=== PATIENT | male | born 1985 | race Caucasian/White ===

== ENCOUNTER 2020-08-28 16:52 | Inpatient (IN) | payer MEDICAID, SELFPAY ==
[~2020-08-28] VITALS: Ht 180.3 cm; Wt 109.7 kg
[2020-08-28] MEDS ORDERED: methylPREDNISolone 125MG 2ML VIAL IV ONE (17:15)
[2020-08-28] MEDS ORDERED: ALEV220T22 PO (17:35)
--- NOTE | 2020-08-28 17:39 | REP ---
INDICATION: Coronavirus workup COMPARISON: None. TECHNIQUE: Portable AP view of the chest FINDINGS: Diffuse bilateral infiltrates consistent with COVID-19 pulmonary disease. No effusion. No pneumothorax. Cardiac silhouette is normal. Skeletal structures intact.. IMPRESSION: Diffuse bilateral infiltrates consistent with COVID-19 pulmonary disease.. <Electronically signed by Chalino Reid > 08/28/20 [id number]
[2020-08-28] MEDS: COMBIVENT RESPIMAT 100-20MCG INHALER 4GM INH SCH ×2 (17:42→17:43)
[2020-08-28] MEDS ORDERED: AZITHROMYCIN INJ 500 MG, VIAL MATE ADAPTER 1 EACH in D5W 250 ML IV ONE (17:45)
[2020-08-28] MEDS ORDERED: cefTRIAXone SOD 1 GM in D5W MINI-BAG PLUS 50 ML IV ONE (17:45)
[2020-08-28 18:41] LABS: BASO % 0.2 % (0.0-1.0); EOS % 0.2 % (0.0-3.0); HEMATOCRIT 43.6 % (42.0-52.0); LYMPH # 0.7 10^3/uL (1.5-5.0); LYMPH % 10.7 % (24.0-44.0); MEAN CORPUSCULAR HEMOGLOBIN 27.8 pg (27.0-33.0); MEAN CORPUSCULAR HGB CONC 32.1 g/dl (32.0-36.5); MEAN CORPUSCULAR VOLUME 86.5 fl (80.0-96.0); MONO # 0.2 10^3/uL (0.0-0.8); MONO % 3.4 % (0.0-5.0); NEUTROPHILS # 5.5 10^3/uL (1.5-8.5); NEUTROPHILS % 84.7 % (36.0-66.0); PLATELET COUNT, AUTOMATED 252 10^3/uL (150-450); RED BLOOD COUNT 5.04 10^6/uL (4.30-6.10); WHITE BLOOD COUNT 6.5 10^3/uL (4.0-10.0)
[2020-08-28 18:58] LABS: INR 1.03; PROTHROMBIN TIME 13.7 SECONDS (12.5-14.3)
[2020-08-28 18:59] LABS: PARTIAL THROMBOPLASTIN TIME 29.8 SECONDS (24.2-38.5)
[2020-08-28 19:01] LABS: D-DIMER QUANT 1608.21 ng/ml (<500)
--- NOTE | 2020-08-28 19:25 | ECGEPIP ---
[facility] - ED Test Date: 2020-08-28 Pat Name: JANAY VAUGHN Department: Room: - Gender: Male Professor Of Communication: russ : 1985 Requested By: Brett Moore Order Number: [id number] Reading MD: Brett Moore Measurements Intervals [place] Rate: 106 P: 26 W[place]: 140 QRS: 6 QRSD: 89 T: 4 QT: 337 QTc: 448 Interpretive Statements SINUS TACHYCARDIA ABNORMAL RHYTHM ECG DELAYED R WAVE PROGRESSION NONSPECIFIC ST T WAVE CHANGES NO PRIOR ECG FOR COMPARISON Electronically Signed on 08-28-2020 19:25:09 EST by Brett Moore
[2020-08-28 19:55] LABS: BLOOD UREA NITROGEN 12 MG/DL (7-18); GLUCOSE, FASTING 97 MG/DL (70-100)
[2020-08-28 19:57] LABS: CALCIUM LEVEL 8.2 MG/DL (8.5-10.1); CARBON DIOXIDE LEVEL 23 mmol/L (20-29); CHLORIDE LEVEL 106 MEQ/L (98-107); CREATININE FOR GFR 1.01 MG/DL (0.70-1.30); GLOMERULAR FILTRATION RATE > 60.0 (>60); POTASSIUM SERUM 3.5 MEQ/L (3.5-5.1); SODIUM LEVEL 139 MEQ/L (136-145)
[2020-08-28 19:58] LABS: ALBUMIN 3.1 GM/DL (3.2-5.2); ALT/SGPT 87 IU/L (0-32); BILIRUBIN,TOTAL 0.9 MG/DL (0.2-1.0); CK-MB VALUE MASS 1.4 NG/ML (<3.6); CPK CREATINE PHOSPHOKINASE 1262 U/L (39-308); LDH LACTATE DEHYDROGENASE 700 U/L (87-241); MAGNESIUM LEVEL 2.2 MG/DL (1.8-2.4); MB/CK RELATIVE INDEX 0.11 (< OR =4); TOTAL PROTEIN 6.4 GM/DL (6.4-8.2)
[2020-08-28 19:59] LABS: FERRITIN 829 NG/ML (26-388); TROPONIN I < 0.02 NG/ML (< 0.10)
--- NOTE | 2020-08-28 20:43 | HPEPDOC ---
[facility] Medical History & Physical Date of Admission Aug 28, 2020 Date of Service: Aug 28, 2020 History and Physical CHIEF COMPLAINT: Shortness of breath and cough HISTORY OF PRESENT ILLNESS: 35-year-old male with a hx of obesity, presented to [facility] with a ten-day history of shortness of breath and productive cough. He reports his father developed symptoms at the same time and tested +2 days ago. Patient had his test, on same date. However, tested negative with a rapid testing technique. Patient is a pulse oximeter home and knows that he was saturating in the high 70%. On arrival to the ED, patient is COVId-19 positive b y PCR. He was hypoxic on room air to 84% on arrival. Is present. Hyponasal cannula up to 15 L, however, continued to desaturate. He was placed on Vapotherm, and is presently saturating 93% on 40 L/m of FiO2 80%. Retinal labs include D dimer 1600. Fibrinogen 628. Ferritin 829. Lactate dehydrogenase 700. CK 1200. CRP 16.7. Procalcitonin pending. Chest x-ray shows diffuse bilateral infiltrates consistent with Covid 19 disease PAST MEDICAL HISTORY: obesity BMI 35.8 PAST SURGICAL HISTORY: no prior surgical hx SOCIAL HISTORY: Patient denies smoking Patient denies etoh use Patient denies illicit drug use ALLERGIES: Please see below. REVIEW OF SYSTEMS: CONSTITUTIONAL: malaise, cough, short of breath, subjective chills HEENT: patient denies blurred vision, loss of vision, headache,. CARDIOVASCULAR: patient denies chest pain, palpitations. RESPIRATORY: reports SOB, cough productive of brown sputum. GASTROINTESTINAL: patient denies abdominal pain, n/v/d, blood in stool. GENITOURINARY: patient denies dysuria, discharge. SKIN: patient denies rashes. MUSCULOSKELETAL: patient denies joint pain, neck pain. NEUROLOGICAL: patient denies focal weakness, numbness, seizures. PSYCHIATRIC: patient denies SI/HI. ENDOCRINE: patient denies polyuria, heat intolerance, cold intolerance. HEMATOLOGIC/LYMPHATIC: patient denies easy bruising. HOME MEDICATIONS: Please see below. PHYSICAL EXAMINATION: VITAL SIGNS: please see below General: NAD, comfortable HEENT: PERRLA, EOMI, sclerae clear Neck: supple, normal ROM, no JVD Respiratory: bilateral crackles at lung bases/rales, educed inspiratory effort CVS: RRR, normal S1, S2, no murmurs Abdo: soft, no masses, no hepatosplenomegaly, BS+, no rebound tenderness Extremities: no edema, pulses 2+ MSK: no joint deformities, normal ROM Neuro: no focal neuro deficits, moving all 4 extremities, CN2-12 intact. Strength 5/5 in all 4 extremities. No nystagmus. Psych: calm, cooperative, AAO x 3 LABORATORY DATA: See below. IMAGING: CXR (08/28/20): IMPRESSION: Diffuse bilateral infiltrates consistent with COVID-19 pulmonary disease MICROBIOLOGY: Please see below. ASSESSMENT: 35 yo healthy M, presented with acute hypoxic respiratory failure secondary to Covid 19 infection. Patient will be admitted to hospitalist service requiring Vapotherm. Will be started on remdesivir, dexamethasone as well as anticoagulation, weight-based. . PLAN: #acute hypoxic respiratory failure / covid-19 infection - chest xray showing findings c/w covid - no fever, no leukocytosis, has proactive cough - procalcitonin pending, will defer antibiotics at this time - trend inflammatory markers daily. - vapotherm, presently 93% on 40 LPM at 80% FiO2 - start remdesivir x 5 days - dexamethasone 6 mg IV daily - combivent - lovenox 0.5 mg/kg q12h - encourage proning - incentive spirometry #Obesity BMI 35.8 - complicating care #DVT ppx: SCDs. TEDs. Lovenox Dispo: admission expected to span > 2 midnights. Vital Signs Vital Signs Date Time Temp Pulse Resp B/P (MAP) Pulse Ox O2 Delivery O2 Flow Rate FiO2 08/28/20 20:25 98 94 08/28/20 20:22 18 08/28/20 20:13 129/79 (96) 08/28/20 19:08 High Flow Cannula 15.0 60 08/28/20 16:52 98.4 Laboratory Data Labs 24H Laboratory Tests 2 08/28/20 17:15: Prothrombin Time 13.7, Prothromb Time International Ratio 1.03, Activated Partial Thromboplast Time 29.8, Fibrinogen 628H, D-Dimer, Quantitative 1608.21H, Anion Gap 10, Glomerular Filtration Rate > 60.0, Calcium Level 8.2L, Magnesium Level 2.2, Ferritin 829H, Total Bilirubin 0.9, Aspartate Amino Transf (AST/SGOT) 102, Alanine Aminotransferase (ALT/SGPT) 87H, Alkaline Phosphatase 52, Lactate Dehydrogenase 700H, Total Creatine Kinase 1262H, Creatine Kinase MB 1.4, Creatine Kinase MB Relative Index 0.11, Troponin I < 0.02, C-Reactive Protein, Quantitative 16.70H, Total Protein 6.4, Albumin 3.1L, Albumin/Globulin Ratio 0.9 08/28/20 17:39: POC pH (Misc Panel) 7.444, POC Base Excess (Misc Panel) -3.0L, POC Saturated Percent O2 (Misc) 92L, POC pO2 (Misc Panel) 60.0L, POC pCO2 (Misc Panel) 30.7L, POC HCO3 (Misc Panel) 21.0L, POC Total CO2 (Misc Panel) 22.0L 08/28/20 18:13: Immature Granulocyte % (Auto) 0.8, Neutrophils (%) (Auto) 84.7H, Lymphocytes (%) (Auto) 10.7L, Monocytes (%) (Auto) 3.4, Eosinophils (%) (Auto) 0.2, Basophils (%) (Auto) 0.2, Neutrophils # (Auto) 5.5, Lymphocytes # (Auto) 0.7L, Monocytes # (Auto) 0.2, Eosinophils # (Auto) 0.0, Basophils # (Auto) 0.0, Nucleated Red Blood Cells % (auto) 0.0 08/28/20 18:14: Coronavirus (COVID-19)(PCR) POSITIVEA CBC/BMP Laboratory Tests 08/28/20 17:15 08/28/20 18:13 Microbiology Microbiology 08/28/20 Blood Culture, Received Pending 08/28/20 Blood Culture, Received Pending Home Medications Scheduled PRN Acetaminophen (Acetaminophen) 325 Mg Tablet, 650 MG PO Q6HP PRN for PAIN / FEVER Allergies Coded Allergies: No Known Allergies (Unverified , 08/28/20) A-FIB/CHADSVASC A-FIB History Current/History of A-Fib/PAF?: No Current PO Anticoag Therapy: No DARRELL MONK MD Aug 28, 2020 20:42
[2020-08-28] MEDS ORDERED: COMBIVENT RESPIMAT 100-20MCG INHALER 4GM INH PRN (21:15)
[2020-08-28] MEDS ORDERED: REMDESIVIR 200 MG in NS 250 ML IV ONE (23:00)
[2020-08-29] VITALS: BP 134/79
[2020-08-29] MEDS ORDERED: SODIUM CHLORIDE 0.9% INJ 10 ML SYR IV ONE (01:00)
[2020-08-29] MEDS: ENOXAPARIN 60MG/0.6ML SYRINGE (J1650 PER 10MG) SC SCH ×3 (01:17→20:06)
[2020-08-29 05:09] VITALS: BP 126/80
[2020-08-29 07:41] VITALS: BP 123/82
[2020-08-29] MEDS: dexameTHASONE 4 MG/ML 1ML VIAL (J1100 PER 1MG) IV SCH (07:43)
[2020-08-29 07:55] LABS: BASO % 0.1 % (0.0-1.0); HEMOGLOBIN 13.5 g/dl (13.5-17.5); LYMPH # 0.6 10^3/uL (1.5-5.0); LYMPH % 8.6 % (24.0-44.0); MEAN CORPUSCULAR HEMOGLOBIN 28.3 pg (27.0-33.0); MEAN CORPUSCULAR HGB CONC 32.9 g/dl (32.0-36.5); MONO # 0.2 10^3/uL (0.0-0.8); MONO % 3.2 % (0.0-5.0); NEUTROPHILS # 6.5 10^3/uL (1.5-8.5); PLATELET COUNT, AUTOMATED 292 10^3/uL (150-450); RED BLOOD COUNT 4.77 10^6/uL (4.30-6.10); WHITE BLOOD COUNT 7.4 10^3/uL (4.0-10.0)
[2020-08-29 08:27] LABS: INR 1.06; PARTIAL THROMBOPLASTIN TIME 37.4 SECONDS (24.2-38.5)
[2020-08-29 09:25] LABS: ALBUMIN 2.7 GM/DL (3.2-5.2); ALT/SGPT 81 U/L (12-78); BILIRUBIN,DIRECT 0.3 MG/DL (0.0-0.2); BILIRUBIN,TOTAL 0.5 MG/DL (0.2-1.0); BLOOD UREA NITROGEN 12 MG/DL (7-18); CALCIUM LEVEL 8.1 MG/DL (8.5-10.1); CARBON DIOXIDE LEVEL 25 MEQ/L (21-32); CHLORIDE LEVEL 106 MEQ/L (98-107); CREATININE FOR GFR 0.82 MG/DL (0.70-1.30); FERRITIN 896 NG/ML (26-388); GLOMERULAR FILTRATION RATE > 60.0 (>60); GLUCOSE, FASTING 126 MG/DL (70-100); MAGNESIUM LEVEL 2.6 MG/DL (1.8-2.4); NT-PRO BNP 78 PG/ML (<125); POTASSIUM SERUM 4.2 MEQ/L (3.5-5.1); SODIUM LEVEL 140 MEQ/L (136-145); TROPONIN I < 0.02 NG/ML (< 0.10)
[2020-08-29 12:00] VITALS: BP 137/85
--- NOTE | 2020-08-29 14:41 | IPNPDOC ---
Text Note Date of Service The patient was seen on 08/29/20. NOTE Subjective: Patient seen and examined at bedside. No acute overnight events reported. No new medical complaints. Slowly feeling better. Objective: General: NAD, lying comfortably in bed HEENT: NC/AT A/P: 35 yo healthy M, presented with acute hypoxic respiratory failure secondary to Covid 19 infection. Patient will be admitted to hospitalist service requiring Vapotherm. Will be started on remdesivir, dexamethasone as well as anticoagulation, weight-based. #acute hypoxic respiratory failure 2/2 covid-19 infection - chest xray showing findings c/w covid - no fever, no leukocytosis, has proactive cough - procalcitonin pending, will defer antibiotics at this time - trend inflammatory markers daily. - vapotherm, presently 93% on 40 LPM at 80% FiO2 - start remdesivir x 5 days day #1 - dexamethasone 6 mg IV daily day #1 - combivent - lovenox 0.5 mg/kg q12h - encourage proning - incentive spirometry #Obesity BMI 35.8 - complicating care #DVT ppx: SCDs. TEDs. Lovenox VS,Fishbone, I+O VS, Fishbone, I+O Laboratory Tests 08/28/20 17:15 08/28/20 18:13 08/29/20 07:29 Vital Signs Date Time Temp Pulse Resp B/P (MAP) Pulse Ox O2 Delivery O2 Flow Rate FiO2 08/29/20 13:03 99.4 08/29/20 12:00 30.0 90 08/29/20 12:00 99 19 137/85 (102) 92 HVNI-Vapotherm I&O- Last 24 Hours up to 6 AM 08/29/20 06:00 Intake Total 425 ml Balance 425 ml JAMES ARVIZU MD Aug 29, 2020 14:41
[2020-08-29 15:54] VITALS: BP 141/98
[2020-08-29 20:00] VITALS: BP 151/91
[2020-08-29] MEDS: ACETAMINOPHEN TAB 650MG DOSE (2X325MG) PO PRN (20:06)
[2020-08-29] MEDS: REMDESIVIR 100 MG in NS 250 ML IV SCH (22:19)
[2020-08-30] VITALS (10 sets, daily range): BP systolic 131–144; BP diastolic 78–97; O2SAT 92–96
[2020-08-30] MEDS: SODIUM CHLORIDE 0.9% INJ 10 ML SYR IV SCH ×2 (00:04→23:57)
[2020-08-30] MEDS: ENOXAPARIN 60MG/0.6ML SYRINGE (J1650 PER 10MG) SC SCH ×2 (09:26→22:00)
[2020-08-30] MEDS: dexameTHASONE 4 MG/ML 1ML VIAL (J1100 PER 1MG) IV SCH (09:27)
[2020-08-30] MEDS ORDERED: FUROSEMIDE 20MG/2ML VIAL (J1940) IV ONE (09:45)
[2020-08-30 10:48] LABS: BASO % 0.1 % (0.0-1.0); HEMOGLOBIN 13.4 g/dl (13.5-17.5); LYMPH # 0.9 10^3/uL (1.5-5.0); MEAN CORPUSCULAR HEMOGLOBIN 27.9 pg (27.0-33.0); MEAN CORPUSCULAR HGB CONC 31.9 g/dl (32.0-36.5); MEAN CORPUSCULAR VOLUME 87.3 fl (80.0-96.0); MONO # 0.4 10^3/uL (0.0-0.8); MONO % 3.9 % (0.0-5.0); NEUTROPHILS # 9.6 10^3/uL (1.5-8.5); NEUTROPHILS % 86.5 % (36.0-66.0); PLATELET COUNT, AUTOMATED 382 10^3/uL (150-450); RED BLOOD COUNT 4.81 10^6/uL (4.30-6.10)
[2020-08-30 11:13] LABS: INR 1.01; PROTHROMBIN TIME 13.5 SECONDS (12.5-14.3)
[2020-08-30 11:14] LABS: PARTIAL THROMBOPLASTIN TIME 29.7 SECONDS (24.2-38.5)
[2020-08-30 11:39] LABS: ALBUMIN 2.6 GM/DL (3.2-5.2); ALT/SGPT 72 U/L (12-78); BILIRUBIN,DIRECT 0.2 MG/DL (0.0-0.2); BILIRUBIN,TOTAL 0.6 MG/DL (0.2-1.0); BLOOD UREA NITROGEN 19 MG/DL (7-18); CALCIUM LEVEL 8.2 MG/DL (8.5-10.1); CARBON DIOXIDE LEVEL 25 MEQ/L (21-32); CHLORIDE LEVEL 105 MEQ/L (98-107); CREATININE FOR GFR 0.78 MG/DL (0.70-1.30); FERRITIN 975 NG/ML (26-388); GLOMERULAR FILTRATION RATE > 60.0 (>60); GLUCOSE, FASTING 121 MG/DL (70-100); MAGNESIUM LEVEL 2.5 MG/DL (1.8-2.4); NT-PRO BNP 113 PG/ML (<125); POTASSIUM SERUM 4.2 MEQ/L (3.5-5.1); SODIUM LEVEL 140 MEQ/L (136-145); TOTAL PROTEIN 5.8 GM/DL (6.4-8.2)
[2020-08-30 12:06] LABS: INFLUENZA A AMPLIFICATION NEGATIVE (NEGATIVE); INFLUENZA B AMPLIFICATION NEGATIVE (NEGATIVE)
[2020-08-30] MEDS: IBUPROFEN 200MG TAB PO PRN (12:28)
--- NOTE | 2020-08-30 13:39 | IPNPDOC ---
Text Note Date of Service The patient was seen on 08/30/20. NOTE Patient seen and examined at bedside. No acute overnight events reported. No new medical complaints. Requiring 100% FiO2 on 40 L, but feeling better PHYSICAL EXAMINATION: General: The patient is awake, alert, oriented x3, sitting up in the bed in no apparent distress. In prone position Head and Neck Exam: Extraocular muscles intact. Pupils equally round and reactive to light. Mucous membranes are moist. Neck is supple. There is no jugular venous distention (JVD). Cardiovascular: S1 and S2, regular rate. Trace edema of the bilateral lower extremities. Respiratory: Distant breath sounds but no rhonchi, no rales appreciated Abdomen: Soft. Positive bowel sounds. Nontender. No organomegaly. Genitourinary: Deferred Musculoskeletal: Clubbing of the fingernails, no cyanosis was noted. Central Nervous System (HOUSEKEEPING ASSOCIATE): No focal deficit. Power is 5/5 in all extremities. Labs reviewed Radiology reviewed Assessment and plan 35 yo healthy M, presented with acute hypoxic respiratory failure secondary to Covid 19 infection. Patient will be admitted to hospitalist service requiring Vapotherm. Will be started on remdesivir, dexamethasone as well as anticoagulation, weight-based. 1. acute hypoxic respiratory failure 2/2 covid-19 infection - chest xray showing findings c/w covid - no fever, no leukocytosis, has proactive cough - procalcitonin negative, will defer antibiotics at this time - trend inflammatory markers daily. - vapotherm, presently 100% on 40 LPM - start remdesivir x 5 days day #2 - dexamethasone 6 mg IV daily day #2 - combivent - lovenox 0.5 mg/kg q12h - encourage proning - incentive spirometry 2. Obesity BMI 35.8 - complicating care Advised prouning, half an hour. For every 2 hours. Incentive spirometry and out of bed to chair. Disposition unknown at this time VS,Freemane, I+O VS, Sachinbone, I+O Laboratory Tests 08/30/20 09:24 Vital Signs Date Time Temp Pulse Resp B/P (MAP) Pulse Ox O2 Delivery O2 Flow Rate FiO2 08/30/20 12:00 100.0 82 21 136/90 (105) 92 HVNI-Vapotherm 40.0 100 I&O- Last 24 Hours up to 6 AM 08/30/20 05:59 Intake Total 2280 ml Output Total 1500 ml Balance 780 ml DARWIN LIRIANO MD Aug 30, 2020 13:39
[2020-08-30] MEDS: REMDESIVIR 100 MG in NS 250 ML IV SCH (23:56)
[2020-08-30] MEDS: ACETAMINOPHEN TAB 650MG DOSE (2X325MG) PO PRN (23:56)
[2020-08-31] VITALS (24 sets, daily range): BP systolic 130–142; BP diastolic 82–96; O2SAT 88–98
[2020-08-31 07:40] LABS: HEMATOCRIT 42.2 % (42.0-52.0); HEMOGLOBIN 13.5 g/dl (13.5-17.5); MEAN CORPUSCULAR HEMOGLOBIN 28.1 pg (27.0-33.0); MEAN CORPUSCULAR VOLUME 87.7 fl (80.0-96.0); PLATELET COUNT, AUTOMATED 397 10^3/uL (150-450); RED BLOOD COUNT 4.81 10^6/uL (4.30-6.10); WHITE BLOOD COUNT 9.4 10^3/uL (4.0-10.0)
[2020-08-31 08:13] LABS: INR 1.08; PARTIAL THROMBOPLASTIN TIME 29.3 SECONDS (24.2-38.5); PROTHROMBIN TIME 14.3 SECONDS (12.5-14.3)
[2020-08-31 08:27] LABS: ATYPICAL LYMPH 4 % (0-5); LYMPHOCYTES 11 % (16-44); MONOCYTES 4 % (0-5); NEUTROPHILS 78 % (28-66); PLATELET ESTIMATE NORMAL (NORMAL)
[2020-08-31 08:37] LABS: ALBUMIN 2.5 GM/DL (3.2-5.2); ALT/SGPT 66 U/L (12-78); BILIRUBIN,DIRECT 0.3 MG/DL (0.0-0.2); BILIRUBIN,TOTAL 0.6 MG/DL (0.2-1.0); BLOOD UREA NITROGEN 21 MG/DL (7-18); CALCIUM LEVEL 8.2 MG/DL (8.5-10.1); CARBON DIOXIDE LEVEL 26 MEQ/L (21-32); CHLORIDE LEVEL 108 MEQ/L (98-107); CREATININE FOR GFR 0.85 MG/DL (0.70-1.30); FERRITIN 647 NG/ML (26-388); GLOMERULAR FILTRATION RATE > 60.0 (>60); GLUCOSE, FASTING 105 MG/DL (70-100); MAGNESIUM LEVEL 2.6 MG/DL (1.8-2.4); NT-PRO BNP 57 PG/ML (<125); POTASSIUM SERUM 4.3 MEQ/L (3.5-5.1); SODIUM LEVEL 143 MEQ/L (136-145); TOTAL PROTEIN 5.6 GM/DL (6.4-8.2)
[2020-08-31] MEDS: dexameTHASONE 4 MG/ML 1ML VIAL (J1100 PER 1MG) IV SCH (08:39)
[2020-08-31] MEDS: ENOXAPARIN 60MG/0.6ML SYRINGE (J1650 PER 10MG) SC SCH ×2 (08:39→21:58)
--- NOTE | 2020-08-31 12:08 | IPNPDOC ---
Text Note Date of Service The patient was seen on 08/31/20. NOTE Patient seen and examined at bedside. No acute overnight events reported. No new medical complaints. Requiring 100% FiO2 on 40 L, but feeling better Physical exam General: The patient is awake, alert, oriented x3, in the bed in no apparent distress. In prone position Head and Neck Exam: Extraocular muscles intact. Pupils equally round and re active to light. Mucous membranes are moist. Neck is supple. There is no jugular venous distention (JVD). Cardiovascular: S1 and S2, regular rate. Trace edema of the bilateral lower extremities. Respiratory: Distant breath sounds but no rhonchi, no rales appreciated Abdomen: Soft. Positive bowel sounds. Nontender. No organomegaly. Genitourinary: Deferred Musculoskeletal: Clubbing of the fingernails, no cyanosis was noted. Central Nervous System (PATIENT OMBUDSPERSON): No focal deficit. Power is 5/5 in all extremities. Labs reviewed Radiology reviewed Assessment and plan 35 yo healthy M, presented with acute hypoxic respiratory failure secondary to Covid 19 infection. Patient will be admitted to hospitalist service requiring Vapotherm. Will be started on remdesivir, dexamethasone as well as anticoagulation, weight-based. 1. acute hypoxic respiratory failure 2/2 covid-19 infection: Stable and slightly improved - chest xray showing findings c/w covid - no fever, no leukocytosis, has proactive cough - procalcitonin negative, will defer antibiotics at this time - trend inflammatory markers daily. - vapotherm, presently 100% on 40 LPM - start remdesivir x 5 days day #3 - dexamethasone 6 mg IV daily day #3 - combivent - lovenox 0.5 mg/kg q12h - encourage proning - incentive spirometry 2. Obesity BMI 35.8 - complicating care Advised prouning, half an hour. For every 2 hours. Incentive spirometry and out of bed to chair. Disposition unknown at this time VS,Fishbone, I+O VS, Fishbone, I+O Laboratory Tests 08/31/20 07:29 Vital Signs Date Time Temp Pulse Resp B/P (MAP) Pulse Ox O2 Delivery O2 Flow Rate FiO2 08/31/20 08:43 99.1 78 20 131/85 (100) 93 HVNI-Vapotherm 40.0 100 I&O- Last 24 Hours up to 6 AM 08/31/20 06:00 Intake Total 2140 ml Output Total 1400 ml Balance 740 ml DARWIN LIRIANO MD Aug 31, 2020 12:08
[2020-08-31] MEDS: REMDESIVIR 100 MG in NS 250 ML IV SCH (23:50)
[2020-09-01] VITALS (9 sets, daily range): BP systolic 102–134; BP diastolic 59–87; O2SAT 91–96
[2020-09-01] MEDS: SODIUM CHLORIDE 0.9% INJ 10 ML SYR IV SCH (01:32)
[2020-09-01 07:59] LABS: BASO % 0.3 % (0.0-1.0); EOS % 0.1 % (0.0-3.0); HEMATOCRIT 42.1 % (42.0-52.0); HEMOGLOBIN 13.2 g/dl (13.5-17.5); LYMPH # 1.5 10^3/uL (1.5-5.0); LYMPH % 13.8 % (24.0-44.0); MEAN CORPUSCULAR HEMOGLOBIN 27.6 pg (27.0-33.0); MEAN CORPUSCULAR HGB CONC 31.4 g/dl (32.0-36.5); MEAN CORPUSCULAR VOLUME 88.1 fl (80.0-96.0); MONO # 0.6 10^3/uL (0.0-0.8); MONO % 5.7 % (0.0-5.0); NEUTROPHILS # 8.3 10^3/uL (1.5-8.5); NEUTROPHILS % 77.6 % (36.0-66.0); PLATELET COUNT, AUTOMATED 437 10^3/uL (150-450); RED BLOOD COUNT 4.78 10^6/uL (4.30-6.10); WHITE BLOOD COUNT 10.7 10^3/uL (4.0-10.0)
[2020-09-01 08:18] LABS: INR 1.06
[2020-09-01 08:20] LABS: PARTIAL THROMBOPLASTIN TIME 28.6 SECONDS (24.2-38.5)
[2020-09-01 08:24] LABS: D-DIMER QUANT 1040.51 ng/ml (<500)
[2020-09-01 08:48] LABS: BLOOD UREA NITROGEN 20 MG/DL (7-18); GLOMERULAR FILTRATION RATE > 60.0 (>60); GLUCOSE, FASTING 87 MG/DL (70-100); SODIUM LEVEL 141 MEQ/L (136-145)
[2020-09-01 08:49] LABS: ALBUMIN 2.5 GM/DL (3.2-5.2); ALT/SGPT 76 U/L (12-78); BILIRUBIN,DIRECT 0.2 MG/DL (0.0-0.2); BILIRUBIN,TOTAL 0.6 MG/DL (0.2-1.0); CALCIUM LEVEL 8.2 MG/DL (8.5-10.1); CARBON DIOXIDE LEVEL 26 MEQ/L (21-32); CHLORIDE LEVEL 108 MEQ/L (98-107); FERRITIN 529 NG/ML (26-388); MAGNESIUM LEVEL 2.4 MG/DL (1.8-2.4); NT-PRO BNP 60 PG/ML (<125); POTASSIUM SERUM 4.5 MEQ/L (3.5-5.1); TOTAL PROTEIN 5.7 GM/DL (6.4-8.2)
[2020-09-01] MEDS: ENOXAPARIN 60MG/0.6ML SYRINGE (J1650 PER 10MG) SC SCH ×2 (09:14→20:48)
[2020-09-01] MEDS: dexameTHASONE 20MG/5ML VIAL (J1100 PER 1MG) IV SCH (13:24)
[2020-09-01] MEDS: IBUPROFEN 200MG TAB PO PRN ×2 (13:24→20:48)
--- NOTE | 2020-09-01 15:14 | IPNPDOC ---
Text Note Date of Service The patient was seen on 09/01/20. NOTE Patient seen and examined at bedside. No acute overnight events reported. No new medical complaints except for not sleeping well last night. Still Requiring 100% FiO2 on 40 L, but feeling better Physical exam General: The patient is awake, alert, oriented x3, in the bed in no apparent distress. In prone position Head and Neck Exam: Extraocular muscles intact. Pupils equally round and reactive to light. Mucous membranes are moist. Neck is supple. There is no jugular venous distention (JVD). Cardiovascular: S1 and S2, regular rate. Trace edema of the bilateral lower extremities. Respiratory: Distant breath sounds but no rhonchi, no rales appreciated Abdomen: Soft. Positive bowel sounds. Nontender. No organomegaly. Genitourinary: Deferred Musculoskeletal: Clubbing of the fingernails, no cyanosis was noted. Central Nervous System (RUBBER PRESS TENDER): No focal deficit. Power is 5/5 in all extremities. Labs reviewed Radiology reviewed Assessment and plan 35 yo healthy M, presented with acute hypoxic respiratory failure secondary to Covid 19 infection. Patient will be admitted to hospitalist service requiring Vapotherm. Will be started on remdesivir, dexamethasone as well as anticoagulation, weight-based. 1. acute hypoxic respiratory failure 2/2 covid-19 infection: Stable and slightly improved - chest xray showing findings c/w covid - no fever, no leukocytosis, has proactive cough - procalcitonin negative, will defer antibiotics at this time - trend inflammatory markers daily. - vapotherm, presently 100% on 40 LPM - remdesivir x 5 days day #4 - dexamethasone 6 mg IV daily day #4 - combivent - lovenox 0.5 mg/kg q12h - encourage proning - incentive spirometry 2. Obesity BMI 35.8 - complicating care Advised prouning, half an hour. For every 2 hours. Incentive spirometry and out of bed to chair. Disposition unknown at this time VSBrendon, I+O VSBrendon, I+O Laboratory Tests 09/01/20 07:17 Vital Signs Date Time Temp Pulse Resp B/P (MAP) Pulse Ox O2 Delivery O2 Flow Rate FiO2 09/01/20 12:00 100.0 70 19 132/63 (86) 93 HVNI-Vapotherm 40.0 100 I&O- Last 24 Hours up to 6 AM 09/01/20 06:00 Intake Total 900 ml Output Total 600 ml Balance 300 ml DARWIN LIRIANO MD Sep 01, 2020 15:14
[2020-09-01] MEDS: REMDESIVIR 100 MG in NS 250 ML IV SCH (21:30)
[2020-09-02] VITALS (7 sets, daily range): BP systolic 107–148; BP diastolic 57–84; O2SAT 95
[2020-09-02] MEDS: SODIUM CHLORIDE 0.9% INJ 10 ML SYR IV SCH (00:02)
[2020-09-02 07:52] LABS: BASO % 0.3 % (0.0-1.0); EOS % 0.3 % (0.0-3.0); HEMATOCRIT 42.6 % (42.0-52.0); HEMOGLOBIN 13.5 g/dl (13.5-17.5); LYMPH # 1.2 10^3/uL (1.5-5.0); LYMPH % 11.6 % (24.0-44.0); MEAN CORPUSCULAR HEMOGLOBIN 27.5 pg (27.0-33.0); MEAN CORPUSCULAR HGB CONC 31.7 g/dl (32.0-36.5); MEAN CORPUSCULAR VOLUME 86.8 fl (80.0-96.0); MONO # 0.4 10^3/uL (0.0-0.8); MONO % 3.9 % (0.0-5.0); NEUTROPHILS # 8.3 10^3/uL (1.5-8.5); NEUTROPHILS % 81.5 % (36.0-66.0); PLATELET COUNT, AUTOMATED 426 10^3/uL (150-450); RED BLOOD COUNT 4.91 10^6/uL (4.30-6.10); WHITE BLOOD COUNT 10.1 10^3/uL (4.0-10.0)
[2020-09-02 08:11] LABS: INR 1.07; PROTHROMBIN TIME 14.1 SECONDS (12.5-14.3)
[2020-09-02 08:20] LABS: ALBUMIN 2.3 GM/DL (3.2-5.2); ALT/SGPT 73 U/L (12-78); BILIRUBIN,DIRECT 0.2 MG/DL (0.0-0.2); BILIRUBIN,TOTAL 0.7 MG/DL (0.2-1.0); BLOOD UREA NITROGEN 16 MG/DL (7-18); CARBON DIOXIDE LEVEL 24 MEQ/L (21-32); CHLORIDE LEVEL 109 MEQ/L (98-107); CREATININE FOR GFR 0.73 MG/DL (0.70-1.30); FERRITIN 479 NG/ML (26-388); GLOMERULAR FILTRATION RATE > 60.0 (>60); GLUCOSE, FASTING 78 MG/DL (70-100); MAGNESIUM LEVEL 2.2 MG/DL (1.8-2.4); NT-PRO BNP 71 PG/ML (<125); POTASSIUM SERUM 4.2 MEQ/L (3.5-5.1); SODIUM LEVEL 140 MEQ/L (136-145); TOTAL PROTEIN 5.9 GM/DL (6.4-8.2)
[2020-09-02] MEDS: dexameTHASONE 20MG/5ML VIAL (J1100 PER 1MG) IV SCH (08:54)
[2020-09-02] MEDS: ENOXAPARIN 60MG/0.6ML SYRINGE (J1650 PER 10MG) SC SCH ×2 (08:55→19:59)
[2020-09-02] MEDS: IBUPROFEN 200MG TAB PO PRN (08:58)
[2020-09-02] MEDS ORDERED: FUROSEMIDE 20MG/2ML VIAL (J1940) IV ONE (11:00)
--- NOTE | 2020-09-02 13:05 | IPNPDOC ---
Text Note Date of Service The patient was seen on 09/02/20. NOTE Patient seen and examined at bedside. No acute overnight events reported. No new medical complaints except for not sleeping well last night.. Finally, he is down to 90% FiO2 and still requiring 40 L Physical exam General: The patient is awake, alert, oriented x3, in the bed in no apparent distress. In prone position Head and Neck Exam: Extraocular muscles intact. Pupils equally round and reactive to light. Mucous membranes are moist. Neck is supple. There is no jugular venous distention (JVD). Cardiovascular: S1 and S2, regular rate. Trace edema of the bilateral lower extremities. Respiratory: Distant breath sounds but no rhonchi, no rales appreciated Abdomen: Soft. Positive bowel sounds. Nontender. No organomegaly. Genitourinary: Deferred Musculoskeletal: Clubbing of the fingernails, no cyanosis was noted. Central Nervous System (FAMILY MEDICINE RESIDENT): No focal deficit. Power is 5/5 in all extremities. Labs reviewed Radiology reviewed Assessment and plan 35 yo healthy M, presented with acute hypoxic respiratory failure secondary to Covid 19 infection. Patient will be admitted to hospitalist service requiring Vapotherm.. He is on remdesivir, dexamethasone as well as prophylactic anticoagulation. 1. acute hypoxic respiratory failure 2/2 covid-19 infection: Stable and slightly improved: Chest x-ray reviewed. He has not been febrile or having any cough or having any leukocytosis. Pro-Jovi is normal, so antibiotics were not started. He continues to be on Vapotherm at 90% FiO2 and 40 L. Dexamethasone is continued tenderness of a discontinued both are day 5 today. He is on Combivent inhaler an d we are encouraging pronating and incentive spirometry. Continue prophylactic dose Lovenox 2. Obesity BMI 35.8: complicating care unit. Counseled in detail Advised prouning, half an hour. For every 2 hours. Incentive spirometry and out of bed to chair. Disposition unknown at this time VS,Brendon, I+O VSBrendon, I+O Laboratory Tests 09/02/20 06:55 Vital Signs Date Time Temp Pulse Resp B/P (MAP) Pulse Ox O2 Delivery O2 Flow Rate FiO2 09/02/20 12:00 99.1 85 18 135/84 (101) 93 HVNI-Vapotherm 40.0 90 I&O- Last 24 Hours up to 6 AM 1/14/21 06:00 Intake Total 1620 ml Output Total 800 ml Balance 820 ml DARWIN LIRIANO MD Sep 02, 2020 13:05
[2020-09-02] MEDS: ACETAMINOPHEN TAB 650MG DOSE (2X325MG) PO PRN (21:39)
[2020-09-03] VITALS (20 sets, daily range): BP systolic 117–155; BP diastolic 63–93; O2SAT 88–93
[2020-09-03] MEDS: ACETAMINOPHEN TAB 650MG DOSE (2X325MG) PO PRN (05:23)
[2020-09-03] MEDS: ENOXAPARIN 60MG/0.6ML SYRINGE (J1650 PER 10MG) SC SCH ×2 (08:23→22:00)
[2020-09-03] MEDS: dexameTHASONE 20MG/5ML VIAL (J1100 PER 1MG) IV SCH (08:23)
[2020-09-03] MEDS: IBUPROFEN 200MG TAB PO PRN (08:39)
--- NOTE | 2020-09-03 12:33 | IPNPDOC ---
Text Note Date of Service The patient was seen on 09/03/20. NOTE Patient seen and examined at bedside. No acute overnight events reported.. He has been pronating very well and feeling a lot better today Physical exam General: The patient is awake, alert, oriented x3, in the bed in no apparent distress. In prone position Head and Neck Exam: Extraocular muscles intact. Pupils equally round and reactive to light. Mucous membranes are moist. Neck is supple. There is no jugular venous distention (JVD). Cardiovascular: S1 and S2, regular rate. Trace edema of the bilateral lower extremities. Respiratory: Distant breath sounds but no rhonchi, no rales appreciated Abdomen: Soft. Positive bowel sounds. Nontender. No organomegaly. Genitourinary: Deferred Musculoskeletal: Clubbing of the fingernails, no cyanosis was noted. Central Nervous System (BUFFING MACHINE TENDER): No focal deficit. Power is 5/5 in all extremities. Labs reviewed Radiology reviewed Assessment and plan 35 yo healthy M, presented with acute hypoxic respiratory failure secondary to Covid 19 infection. Patient will be admitted to hospitalist service requiring Vapotherm initially maximum at 40 L an 100% FiO2 and it is currently down to 75% FiO2 and 35 L. He is on remdesivir and will require a total of 10 days, dexa methasone as well as prophylactic anticoagulation 0.5 mg per KG body weight. 1. Acute hypoxic respiratory failure 2/2 covid-19 infection: Stable and slightly improved: Chest x-ray reviewedPro-Jovi is normal, so antibiotics were not started. He continues to be on Vapotherm, but it has gone down to 75 FiO2 and 35 L. Dexamethasone and remdesivir continued. He is on Combivent inhaler and we are encouraging pronating and incentive spirometry. Continue prophylactic dose Lovenox at 0.5 mg per KG body weight 2. Obesity BMI 35.8: complicating care unit. Counseled in detail Advised prouning, half an hour. For every 2 hours. Incentive spirometry and out of bed to chair. Disposition unknown at this time VS,Fishbone, I+O VS, Fishbone, I+O Vital Signs Date Time Temp Pulse Resp B/P (MAP) Pulse Ox O2 Delivery O2 Flow Rate FiO2 09/03/20 12:00 100.0 86 20 131/81 (98) 93 HVNI-Vapotherm 36.0 75 I&O- Last 24 Hours up to 6 AM 09/03/20 06:00 Intake Total 1670 ml Output Total 2075 ml Balance -405 ml DARWIN LIRIANO MD Sep 03, 2020 12:33
[2020-09-04] VITALS (7 sets, daily range): BP systolic 109–148; BP diastolic 69–91; O2SAT 92–94
[2020-09-04 09:06] LABS: HEMATOCRIT 44.2 % (42.0-52.0); HEMOGLOBIN 14.6 g/dl (13.5-17.5); MEAN CORPUSCULAR HEMOGLOBIN 28.2 pg (27.0-33.0); MEAN CORPUSCULAR VOLUME 85.3 fl (80.0-96.0); PLATELET COUNT, AUTOMATED 466 10^3/uL (150-450); RED BLOOD COUNT 5.18 10^6/uL (4.30-6.10); WHITE BLOOD COUNT 11.5 10^3/uL (4.0-10.0)
[2020-09-04] MEDS: dexameTHASONE 20MG/5ML VIAL (J1100 PER 1MG) IV SCH (09:11)
[2020-09-04] MEDS: ENOXAPARIN 60MG/0.6ML SYRINGE (J1650 PER 10MG) SC SCH ×3 (09:11→21:37)
[2020-09-04] MEDS: ACETAMINOPHEN TAB 650MG DOSE (2X325MG) PO PRN (09:12)
[2020-09-04 09:22] LABS: ALBUMIN 2.4 GM/DL (3.2-5.2); ALT/SGPT 56 U/L (12-78); BILIRUBIN,TOTAL 0.8 MG/DL (0.2-1.0); BLOOD UREA NITROGEN 14 MG/DL (7-18); CARBON DIOXIDE LEVEL 24 MEQ/L (21-32); CHLORIDE LEVEL 104 MEQ/L (98-107); CREATININE FOR GFR 0.82 MG/DL (0.70-1.30); GLOMERULAR FILTRATION RATE > 60.0 (>60); GLUCOSE, FASTING 72 MG/DL (70-100); POTASSIUM SERUM 4.6 MEQ/L (3.5-5.1); SODIUM LEVEL 138 MEQ/L (136-145); TOTAL PROTEIN 5.8 GM/DL (6.4-8.2)
[2020-09-04 09:23] LABS: ALBUMIN 2.4 GM/DL (3.2-5.2); BILIRUBIN,DIRECT 0.3 MG/DL (0.0-0.2); BILIRUBIN,TOTAL 0.8 MG/DL (0.2-1.0); TOTAL PROTEIN 5.9 GM/DL (6.4-8.2)
[2020-09-04] MEDS: REMDESIVIR 100 MG in NS 250 ML IV SCH (12:47)
--- NOTE | 2020-09-04 15:03 | IPNPDOC ---
Text Note Date of Service The patient was seen on 09/04/20. NOTE Subjective: No any acute events overnight Objective: GENERAL APPEARANCE: NAD HEENT: no scleral icterus, no JVD, EOMI CARDIOVASCULAR: S1S2 LUNGS: Diminished lung sounds bilaterally ABDOMEN: soft & not tender w palpitation MUSCULOSKELETAL: no cyanosis, no swelling INTEGUMENT: no generalized palor NEUROLOGICAL: cranial nerve function from 2-12 intact intact, follows commands, speech not dysarthric Assessment and plan 35 yo healthy M, presented with acute hypoxic respiratory failure secondary to Covid 19 infection. Patient is treatment with steroids, Remdesevir and Vapotherm 1. Acute hypoxic respiratory failure 2/2 covid-19 infection: Continue current treatment with steroids, Remdesevir and Vapotherm procalcitonin was negative, no indications for antibiotics for now Covid 19 PNA Chest x-ray showed Diffuse bilateral infiltrates consistent with COVID-19 pulmonary disease.. Continue incentive spirometry Obesity BMI 35.8: complicating care unit. VS,Fishbone, I+O VS, Fishbone, I+O Laboratory Tests 09/04/20 08:00 Vital Signs Date Time Temp Pulse Resp B/P (MAP) Pulse Ox O2 Delivery O2 Flow Rate FiO2 09/04/20 08:00 87 HVNI-Vapotherm 40.0 100 09/04/20 08:00 101.4 111 20 127/75 (92) I&O- Last 24 Hours up to 6 AM 09/04/20 06:00 Intake Total 660 ml Output Total 1400 ml Balance -740 ml REYNALDO DOCKERY DO Sep 04, 2020 15:03
[2020-09-05] VITALS: BP 143/92; O2SAT 94
[2020-09-05 06:00] VITALS: BP 138/85; O2SAT 94
[2020-09-05 06:17] LABS: HEMATOCRIT 44.1 % (42.0-52.0); HEMOGLOBIN 14.5 g/dl (13.5-17.5); MEAN CORPUSCULAR HEMOGLOBIN 27.9 pg (27.0-33.0); MEAN CORPUSCULAR HGB CONC 32.9 g/dl (32.0-36.5); MEAN CORPUSCULAR VOLUME 84.8 fl (80.0-96.0); PLATELET COUNT, AUTOMATED 437 10^3/uL (150-450); WHITE BLOOD COUNT 9.2 10^3/uL (4.0-10.0)
[2020-09-05 07:00] LABS: ALBUMIN 2.3 GM/DL (3.2-5.2); ALT/SGPT 50 U/L (12-78); BILIRUBIN,TOTAL 0.8 MG/DL (0.2-1.0); BLOOD UREA NITROGEN 13 MG/DL (7-18); CALCIUM LEVEL 8.4 MG/DL (8.5-10.1); CARBON DIOXIDE LEVEL 27 MEQ/L (21-32); CHLORIDE LEVEL 104 MEQ/L (98-107); CREATININE FOR GFR 0.84 MG/DL (0.70-1.30); GLOMERULAR FILTRATION RATE > 60.0 (>60); GLUCOSE, FASTING 76 MG/DL (70-100); POTASSIUM SERUM 4.4 MEQ/L (3.5-5.1); SODIUM LEVEL 137 MEQ/L (136-145); TOTAL PROTEIN 5.8 GM/DL (6.4-8.2)
[2020-09-05 08:00] VITALS: BP 137/80
[2020-09-05] MEDS: ENOXAPARIN 60MG/0.6ML SYRINGE (J1650 PER 10MG) SC SCH (09:25)
[2020-09-05] MEDS: dexameTHASONE 20MG/5ML VIAL (J1100 PER 1MG) IV SCH (09:25)
[2020-09-05] MEDS: ACETAMINOPHEN TAB 650MG DOSE (2X325MG) PO PRN (09:30)
[2020-09-05 12:00] VITALS: BP 135/76
--- NOTE | 2020-09-05 13:20 | IPNPDOC ---
Text Note Date of Service The patient was seen on 09/05/20. NOTE Subjective: No any acute events overnight. Objective: GENERAL APPEARANCE: NAD HEENT: no scleral icterus, no JVD, EOMI CARDIOVASCULAR: S1S2 LUNGS: Diminished lung sounds bilaterally ABDOMEN: soft & not tender w palpitation MUSCULOSKELETAL: no cyanosis, no swelling INTEGUMENT: no generalized pallor NEUROLOGICAL: cranial nerve function from 2-12 intact intact, follows commands, speech not dysarthric Assessment and plan 35 yo healthy M, presented with acute hypoxic respiratory failure secondary to Covid 19 infection. Patient is treatment with steroids, Remdesevir and Vapotherm 1. Acute hypoxic respiratory failure 2/2 covid-19 infection: Continue current treatment with steroids, Remdesevir and Vapotherm procalcitonin was negative, no indications for antibiotics for now Covid 19 PNA Chest x-ray showed Diffuse bilateral infiltrates consistent with COVID-19 pulm onary disease. Continue incentive spirometry D dimer trending up Lovenox therapeutic dose Sepsis Secondary to Covid 19 PNA Patient was febrile in the morning with tachycardia and dyspnea Temperature was 101.1, with heart rate 101 Continue current treatment IV fluid Obesity BMI 35.8: complicating care unit. VS,Fishbone, I+O VS, Fishbone, I+O Laboratory Tests 09/05/20 05:55 Vital Signs Date Time Temp Pulse Resp B/P (MAP) Pulse Ox O2 Delivery O2 Flow Rate FiO2 09/05/20 08:00 100.5 92 17 137/80 (99) 94 HVNI-Vapotherm 40.0 100 I&O- Last 24 Hours up to 6 AM 09/05/20 06:00 Intake Total 1920 ml Output Total 1300 ml Balance 620 ml REYNALDO DOCKERY DO Sep 05, 2020 13:20
[2020-09-05] MEDS ORDERED: NS 1,000 ML IV ONE (14:00)
[2020-09-05 14:20] LABS: FERRITIN 442 NG/ML (26-388)
[2020-09-05 14:28] LABS: FIBRINOGEN 531 MG/DL (221-452)
[2020-09-05 15:12] LABS: D-DIMER QUANT > 4000 ng/ml (<500)
[2020-09-05] MEDS: REMDESIVIR 100 MG in NS 250 ML IV SCH (15:49)
[2020-09-05 16:00] VITALS: BP 140/95
[2020-09-05] MEDS: NS 1,000 ML IV SCH (17:11)
[2020-09-05] MEDS: ENOXAPARIN 120MG/0.8ML SYRINGE (J1650 PER 10MG) SC SCH (18:28)
[2020-09-05 20:48] VITALS: BP 138/96
[2020-09-06] MEDS: NS 1,000 ML IV SCH ×2 (00:26→09:02)
[2020-09-06] MEDS: IBUPROFEN 200MG TAB PO PRN ×2 (00:27→22:19)
[2020-09-06 00:32] VITALS: BP 129/72
[2020-09-06] MEDS: ENOXAPARIN 120MG/0.8ML SYRINGE (J1650 PER 10MG) SC SCH ×2 (05:30→17:09)
[2020-09-06 05:36] VITALS: BP 114/60
[2020-09-06 08:00] VITALS: BP 122/70
[2020-09-06] MEDS: dexameTHASONE 20MG/5ML VIAL (J1100 PER 1MG) IV SCH (09:02)
[2020-09-06 10:00] LABS: HEMATOCRIT 38.7 % (42.0-52.0); MEAN CORPUSCULAR HEMOGLOBIN 27.6 pg (27.0-33.0); MEAN CORPUSCULAR HGB CONC 31.8 g/dl (32.0-36.5); MEAN CORPUSCULAR VOLUME 86.8 fl (80.0-96.0); PLATELET COUNT, AUTOMATED 460 10^3/uL (150-450); RED BLOOD COUNT 4.46 10^6/uL (4.30-6.10); WHITE BLOOD COUNT 9.1 10^3/uL (4.0-10.0)
[2020-09-06 10:02] LABS: HEMOGLOBIN 12.3 g/dl (13.5-17.5)
[2020-09-06 10:21] LABS: ALBUMIN 2.2 GM/DL (3.2-5.2); ALT/SGPT 45 U/L (12-78); BILIRUBIN,TOTAL 0.5 MG/DL (0.2-1.0); BLOOD UREA NITROGEN 10 MG/DL (7-18); CALCIUM LEVEL 8.6 MG/DL (8.5-10.1); CARBON DIOXIDE LEVEL 24 MEQ/L (21-32); CHLORIDE LEVEL 108 MEQ/L (98-107); CREATININE FOR GFR 0.69 MG/DL (0.70-1.30); GLOMERULAR FILTRATION RATE > 60.0 (>60); GLUCOSE, FASTING 76 MG/DL (70-100); POTASSIUM SERUM 4.1 MEQ/L (3.5-5.1); SODIUM LEVEL 141 MEQ/L (136-145); TOTAL PROTEIN 5.5 GM/DL (6.4-8.2)
--- NOTE | 2020-09-06 11:07 | REP ---
INDICATION: covid + COMPARISON: 08/28/2020 TECHNIQUE: Portable AP view of the chest FINDINGS: Significantly increased diffuse bilateral pulmonary opacities. No effusion. No pneumothorax. Visualized mediastinum and cardiac silhouette stable. Skeletal structures intact. IMPRESSION: Significantly increased bilateral pulmonary opacities. <Electronically signed by Chalino Reid > 09/06/20 1102
--- NOTE | 2020-09-06 11:44 | IPNPDOC ---
Text Note Date of Service The patient was seen on 09/06/20. NOTE Subjective: - Patient seen at bedside and examined. He reports having some dry cough since couple of days, other than that feeling better, eating well, no acute events overnight. Physical exam: General: Patient is awake, alert, oriented times three, sitting in bed, no apparent distress. Head and neck :Conjunctiva clear, pupils equal round and reactive to light and accommodation. Cardiovascular: S1, S2, normal rhythm, no murmur appreciated. Respiratory: Decreased/diminished bilateral breath sounds, no rhonchi or wheezes. Abdomen: Soft, bowel sounds positive, no tenderness Extremities: No edema, no tenderness. Central nervous system (DIE MECHANIC): Awake, alert and fully oriented. No focal deficits. Imaging: Chest x-ray on 09/06/2019: Reported as Significantly increased bilateral pulmonary opacities. Assessment: Mr. Zendejas is a 35-year-old male who presented to ED on Aug, with symptoms going on since 10 days prior to that of shortness of breath and productive cou gh. He initially in ED was on 15 L and at 84% saturation later was desaturating and was put on Vapotherm of 40 L and 100% FiO2, he was admitted to the hospital and was started on remdesivir [today is day 10], and steroids[day 10] and Lovenox was switched to 110 MG yesterday as is d- dimer is >3000. Acute hypoxic respiratory failure 2/2 covid -19 infection: - Patient is stable and slightly improving, repeat chest x-ray showed increased bilateral pulmonary opacities. - He continues to be on Vapotherm 30 L 90% FiO2, will try to wean him down slowly. - He is on day 10 of Remdesivir, day 10 of dexamethasone. - He is encouraged to use incentive spirometry more often. - Lovenox 110 MG, due to elevated d-dimer. - Will Start him on vitamin C and zinc Obesity: - BMI of 34.2. - Complicating care. Disposition unknown at this time VS,Brendon, I+O VS, Brendon, I+O Laboratory Tests 09/06/20 08:18 Vital Signs Date Time Temp Pulse Resp B/P (MAP) Pulse Ox O2 Delivery O2 Flow Rate FiO2 09/06/20 10:30 94 HVNI-Vapotherm 30.0 90 09/06/20 08:00 99.4 94 20 122/70 (87) I&O- Last 24 Hours up to 6 AM 09/06/20 06:00 Intake Total 4080 ml Output Total 2375 ml Balance 1705 ml GME ATTESTATION GME ATTESTATION My faculty preceptor for this patient encounter was physically present during the encounter and was fully available. All aspects of the patient interview, examination, medical decision making process, and medical care plan development were reviewed and approved by the faculty preceptor. The faculty preceptor is aware and concurs with the plan as stated in the body of this note and will attest to such by his/her cosignature. ATTENDING NOTE I, Darwin Liriano MD, have independently examined this patient and performed my own physical exam, as well as reviewed the documentation and edited where necessary. I have discussed in detail with the resident / student the findings and plan of treatment as documented by the resident / student and edited their note. I agree with their findings and treatment plan and have edited their documentation. Jelena Sanchez MD Sep 06, 2020 11:44 DARWIN LIRIANO MD Sep 10, 2020 13:35
[2020-09-06] MEDS: REMDESIVIR 100 MG in NS 250 ML IV SCH (11:57)
[2020-09-06] MEDS: ZINC SULFATE 220 MG CAP PO SCH (11:57)
[2020-09-06] MEDS: ASCORBIC ACID 500 MG TAB PO SCH (11:57)
[2020-09-06 12:00] VITALS: BP 131/76
[2020-09-06] MEDS ORDERED: SODIUM CHLORIDE 0.9% INJ 10 ML SYR IV SCH (13:00)
[2020-09-06 16:00] VITALS: BP 127/73
[2020-09-06 19:55] VITALS: BP 129/75
[2020-09-07] VITALS (7 sets, daily range): BP systolic 121–136; BP diastolic 65–84
[2020-09-07] MEDS: ENOXAPARIN 120MG/0.8ML SYRINGE (J1650 PER 10MG) SC SCH ×2 (05:53→18:31)
[2020-09-07 07:23] LABS: HEMATOCRIT 40.3 % (42.0-52.0); HEMOGLOBIN 13.1 g/dl (13.5-17.5); MEAN CORPUSCULAR HEMOGLOBIN 28.2 pg (27.0-33.0); MEAN CORPUSCULAR HGB CONC 32.5 g/dl (32.0-36.5); MEAN CORPUSCULAR VOLUME 86.7 fl (80.0-96.0); PLATELET COUNT, AUTOMATED 432 10^3/uL (150-450); RED BLOOD COUNT 4.65 10^6/uL (4.30-6.10); WHITE BLOOD COUNT 9.9 10^3/uL (4.0-10.0)
[2020-09-07 07:52] LABS: ALBUMIN 2.3 GM/DL (3.2-5.2); ALT/SGPT 55 U/L (12-78); BILIRUBIN,TOTAL 0.4 MG/DL (0.2-1.0); BLOOD UREA NITROGEN 10 MG/DL (7-18); CALCIUM LEVEL 8.8 MG/DL (8.5-10.1); CARBON DIOXIDE LEVEL 25 MEQ/L (21-32); CHLORIDE LEVEL 106 MEQ/L (98-107); CREATININE FOR GFR 0.88 MG/DL (0.70-1.30); GLOMERULAR FILTRATION RATE > 60.0 (>60); GLUCOSE, FASTING 93 MG/DL (70-100); POTASSIUM SERUM 3.6 MEQ/L (3.5-5.1); SODIUM LEVEL 140 MEQ/L (136-145); TOTAL PROTEIN 6.1 GM/DL (6.4-8.2)
[2020-09-07] MEDS: ACETAMINOPHEN TAB 650MG DOSE (2X325MG) PO PRN (08:58)
[2020-09-07] MEDS: ZINC SULFATE 220 MG CAP PO SCH (08:58)
[2020-09-07] MEDS: ASCORBIC ACID 500 MG TAB PO SCH (08:58)
[2020-09-07] MEDS: dexameTHASONE 20MG/5ML VIAL (J1100 PER 1MG) IV SCH (08:58)
--- NOTE | 2020-09-07 13:38 | IPNPDOC ---
Text Note Date of Service The patient was seen on 09/07/20. NOTE Subjective: Patient seen at bedside and examined today. Still reports to have some dry cough, but is feeling better. No acute events overnight. Physical exam: General: Patient is awake, alert, oriented times three, sitting in bed, no apparent distress. Head and neck :Conjunctiva clear, pupils equal round and reactive to light and accommodation. Cardiovascular: S1, S2, normal rhythm, no murmur appreciated. Respiratory: Decreased/diminished bilateral breath sounds, no rhonchi or wheezes. Abdomen: Soft, bowel sounds positive, no tenderness Extremities: No edema, no tenderness. Central nervous system (BUSINESS PROCESS ARCHITECT): Awake, alert and fully oriented. No focal deficits. Assessment: Mr. Zendejas is a 35-year-old male who presented to ED on Aug 28, with symptoms going on since 10 days prior of shortness of breath and productive cough. He initially in ED was on 15 L and at 84% saturation later was desaturating and was put on Vapotherm of 40 L and 100% FiO2, he was admitted to the hospital and was started on remdesivir [last day 09/06/2020], and steroids[day 11] and Lovenox wa s switched to 110 MG due to increasing d-dimer. Acute hypoxic respiratory failure 2/2 Covid 19 infection: - Patient is gradually improving slowly. He is on 30 L and 80% FiO2 on Vapotherm. Better than yesterday. - Will try to wean him down slowly as tolerated. - On day 11 of dexamethasone. Yesterday was his last dose remdesivir[09/06/2020] - Encourage to use incentive spirometry as often as possible. - Will continue and Lovenox 110 MG - Will continue vitamin C and zinc Obesity: - BMI is 34.2 - Complicating care. Disposition unknown at this time. VS,Fishbone, I+O VS, Fishbone, I+O Laboratory Tests 09/07/20 06:59 Vital Signs Date Time Temp Pulse Resp B/P (MAP) Pulse Ox O2 Delivery O2 Flow Rate FiO2 09/07/20 13:18 97.5 98 19 133/81 (98) 93 HVNI-Vapotherm 30.0 80 I&O- Last 24 Hours up to 6 AM 09/07/20 06:00 Intake Total 1880 ml Output Total 3925 ml Balance -2045 ml GME ATTESTATION GME ATTESTATION My faculty preceptor for this patient encounter was physically present during the encounter and was fully available. All aspects of the patient interview, examination, medical decision making process, and medical care plan development were reviewed and approved by the faculty preceptor. The faculty preceptor is aware and concurs with the plan as stated in the body of this note and will attest to such by his/her cosignature. ATTENDING NOTE I, Selvin Liriano MD, have independently examined this patient and performed my own physical exam, as well as reviewed the documentation and edited where necessary. I have discussed in detail with the resident / student the findings and plan of treatment as documented by the resident / student and edited their note. I agree with their findings and treatment plan and have edited their documentation. Jelena Sanchez MD Sep 07, 2020 13:38 SELVIN LIRIANO MD Sep 10, 2020 13:36
[2020-09-08] VITALS (7 sets, daily range): BP systolic 124–137; BP diastolic 53–87; O2SAT 92
[2020-09-08] MEDS: ENOXAPARIN 120MG/0.8ML SYRINGE (J1650 PER 10MG) SC SCH (04:52)
[2020-09-08 08:05] LABS: HEMATOCRIT 39.7 % (42.0-52.0); HEMOGLOBIN 12.6 g/dl (13.5-17.5); MEAN CORPUSCULAR HEMOGLOBIN 27.3 pg (27.0-33.0); MEAN CORPUSCULAR HGB CONC 31.7 g/dl (32.0-36.5); MEAN CORPUSCULAR VOLUME 86.1 fl (80.0-96.0); PLATELET COUNT, AUTOMATED 493 10^3/uL (150-450); RED BLOOD COUNT 4.61 10^6/uL (4.30-6.10); WHITE BLOOD COUNT 11.6 10^3/uL (4.0-10.0)
[2020-09-08 08:32] LABS: ALBUMIN 2.4 GM/DL (3.2-5.2); ALT/SGPT 66 U/L (12-78); BILIRUBIN,TOTAL 0.3 MG/DL (0.2-1.0); BLOOD UREA NITROGEN 9 MG/DL (7-18); CALCIUM LEVEL 8.8 MG/DL (8.5-10.1); CARBON DIOXIDE LEVEL 27 MEQ/L (21-32); CHLORIDE LEVEL 107 MEQ/L (98-107); CREATININE FOR GFR 0.79 MG/DL (0.70-1.30); GLOMERULAR FILTRATION RATE > 60.0 (>60); GLUCOSE, FASTING 85 MG/DL (70-100); POTASSIUM SERUM 4.1 MEQ/L (3.5-5.1); SODIUM LEVEL 141 MEQ/L (136-145); TOTAL PROTEIN 5.6 GM/DL (6.4-8.2)
[2020-09-08] MEDS: ASCORBIC ACID 500 MG TAB PO SCH (09:31)
[2020-09-08] MEDS: ZINC SULFATE 220 MG CAP PO SCH (09:31)
[2020-09-08] MEDS: dexameTHASONE 20MG/5ML VIAL (J1100 PER 1MG) IV SCH (09:31)
--- NOTE | 2020-09-08 11:33 | IPNPDOC ---
Text Note Date of Service The patient was seen on 09/08/20. NOTE Subjective: Patient seen and examined at bedside. He is doing better today, feeling well, he reports still having dry cough at times but not toward the day. No acute events overnight. Physical exam: General: Patient is awake, alert, oriented times three, sitting in bed, no a pparent distress. Head and neck :Conjunctiva clear, pupils equal round and reactive to light and accommodation. Cardiovascular: S1, S2, normal rhythm, no murmur appreciated. Respiratory: Diminished sounds on right lung but able to hear some breath sounds in the left lower lobes in few spots, no rhonchi or wheezes. Abdomen: Soft, bowel sounds positive, no tenderness Extremities: No edema, no tenderness. Central nervous system (GENERAL SERVICE OFFICER): Awake, alert and fully oriented. No focal deficits. Assessment: Mr. Zendejas is a 35-year-old male who presented to ED on Aug 28, with symptoms going on since 10 days prior of shortness of breath and productive cough. He initially in ED was on 15 L and at 84% saturation later was desaturating and was put on Vapotherm of 40 L and 100% FiO2, he was admitted to the hospital and was started on remdesivir finished on 09/06, and steroids[day 12] and Lovenox was dec reased to 60 mg twice a day given his d-dimer has gone down. Acute hypoxic respiratory failure 2/2 Covid 19 infection: - Patient is gradually improving slowly. He is on 20 L and 60 % FiO2 on Vapother m. Better than yesterday. - Will try to wean him down slowly as tolerated. - On day 12 of dexamethasone. last dose remdesivir on [09/06/2020] - Encourage to use incentive spirometry as often as possible. - Encourage patient out of bed to chair more times. - Will decrease his Lovenox to 60 mg twice a day given his d-dimer levels have gone down. - Will continue vitamin C and zinc Obesity: - BMI is 34.2 - Complicating care. Disposition: Patient is improving gradually and is going in the right direction if he continues to improve the same day I anticipate he will be needing home oxygen but will be able to go home may be early next week. VS,Fishbone, I+O VS, Fishbone, I+O Laboratory Tests 09/08/20 07:16 Vital Signs Date Time Temp Pulse Resp B/P (MAP) Pulse Ox O2 Delivery O2 Flow Rate FiO2 09/08/20 10:14 92 20.0 60 09/08/20 09:52 HVNI-Vapotherm 09/08/20 08:00 97.8 82 17 132/80 (97) I&O- Last 24 Hours up to 6 AM 09/08/20 06:00 Intake Total 2960 ml Output Total 2450 ml Balance 510 ml GME ATTESTATION GME ATTESTATION My faculty preceptor for this patient encounter was physically present during the encounter and was fully available. All aspects of the patient interview, examination, medical decision making process, and medical care plan development were reviewed and approved by the faculty preceptor. The faculty preceptor is aware and concurs with the plan as stated in the body of this note and will attest to such by his/her cosignature. ATTENDING NOTE I, Selvin Liriano MD, have independently examined this patient and performed my own physical exam, as well as reviewed the documentation and edited where necess yajaira. I have discussed in detail with the resident / student the findings and plan of treatment as documented by the resident / student and edited their note. I agree with their findings and treatment plan and have edited their documentation. Jelena Sanchez MD Sep 08, 2020 11:33 SELVIN LIRIANO MD Sep 10, 2020 13:37
[2020-09-08] MEDS: ENOXAPARIN 60MG/0.6ML SYRINGE (J1650 PER 10MG) SC SCH (16:27)
[2020-09-09 04:00] VITALS: BP 111/72
[2020-09-09] MEDS: ENOXAPARIN 60MG/0.6ML SYRINGE (J1650 PER 10MG) SC SCH ×2 (06:13→17:43)
[2020-09-09 07:46] LABS: HEMATOCRIT 40.7 % (42.0-52.0); HEMOGLOBIN 13.2 g/dl (13.5-17.5); MEAN CORPUSCULAR HEMOGLOBIN 28.1 pg (27.0-33.0); MEAN CORPUSCULAR HGB CONC 32.4 g/dl (32.0-36.5); MEAN CORPUSCULAR VOLUME 86.6 fl (80.0-96.0); PLATELET COUNT, AUTOMATED 507 10^3/uL (150-450); WHITE BLOOD COUNT 10.8 10^3/uL (4.0-10.0)
[2020-09-09 08:00] VITALS: BP 116/69
[2020-09-09 08:19] LABS: ALBUMIN 2.6 GM/DL (3.2-5.2); ALT/SGPT 72 U/L (12-78); BILIRUBIN,TOTAL 0.4 MG/DL (0.2-1.0); BLOOD UREA NITROGEN 11 MG/DL (7-18); CALCIUM LEVEL 8.6 MG/DL (8.5-10.1); CARBON DIOXIDE LEVEL 26 MEQ/L (21-32); CHLORIDE LEVEL 104 MEQ/L (98-107); GLOMERULAR FILTRATION RATE > 60.0 (>60); GLUCOSE, FASTING 86 MG/DL (70-100); POTASSIUM SERUM 3.9 MEQ/L (3.5-5.1); SODIUM LEVEL 140 MEQ/L (136-145); TOTAL PROTEIN 5.9 GM/DL (6.4-8.2)
[2020-09-09] MEDS: ASCORBIC ACID 500 MG TAB PO SCH (09:30)
[2020-09-09] MEDS: dexameTHASONE 20MG/5ML VIAL (J1100 PER 1MG) IV SCH (09:30)
[2020-09-09] MEDS: ZINC SULFATE 220 MG CAP PO SCH (09:30)
[2020-09-09 12:00] VITALS: BP 126/67
--- NOTE | 2020-09-09 13:30 | IPNPDOC ---
Text Note Date of Service The patient was seen on 09/09/20. NOTE Subjective: Patient seen and examined at bedside today. He reports he is doing well, he had a good night sleep, denies any acute events overnight. Physical exam: General: Patient is awake, alert, oriented times three, sitting in bed, no apparent distress. Head and neck :Conjunctiva clear, pupils equal round and reactive to light and accommodation. Cardiovascular: S1, S2, normal rhythm, no murmur appreciated. Respiratory: Distant breath sounds heard in bilateral lungs, no rhonchi or wheezes. Abdomen: Soft, bowel sounds positive, no tenderness Extremities: No edema, no tenderness. Central nervous system (LUMBER SORTER MACHINE): Awake, alert and fully oriented. No focal deficits. Assessment: Mr. Zendejas is a 35-year-old male who presented to ED on Aug 28, with symptoms going on since 10 days prior of shortness of breath and productive cough. He initially in ED was on 15 L and at 84% saturation later was desaturating and was put on Vapotherm of 40 L and 100% FiO2, he was admitted to the hospital and was started on remdesivir finished on 09/06, and steroids[day 12] and Lovenox was decreased to 60 mg twice a day given his d-dimer has gone down. Acute hypoxic respiratory failure 2/2 Covid 19 infection: - Patient is improving slowly. Moving in the right direction. He is on 20 L and 50 % FiO2 on Vapotherm. Better than yesterday. - Will try to wean him down slowly as tolerated. - On day 13 of dexamethasone. last dose remdesivir on [09/06/2020] - Encourage to use incentive spirometry as often as possible. - Will continue Lovenox 60 mg twice a day - Will continue vitamin C and zinc Obesity: - BMI is 34.2 - Complicating care. Disposition: Will try to gradually weaned down on Vapotherm. If patient improves in same way he should be on nasal cannula over the weekend. VS,Fishbone, I+O VS, Fishbone, I+O Laboratory Tests 09/09/20 06:07 Vital Signs Date Time Temp Pulse Resp B/P (MAP) Pulse Ox O2 Delivery O2 Flow Rate FiO2 09/09/20 12:00 98.4 98 20 126/67 (86) 88 HVNI-Vapotherm 25.0 80 I&O- Last 24 Hours up to 6 AM 09/09/20 06:00 Intake Total 3120 ml Output Total 1700 ml Balance 1420 ml GME ATTESTATION GME ATTESTATION My faculty preceptor for this patient encounter was physically present during the encounter and was fully available. All aspects of the patient interview, examination, medical decision making process, and medical care plan development were reviewed and approved by the faculty preceptor. The faculty preceptor is aware and concurs with the plan as stated in the body of this note and will attest to such by his/her cosignature. ATTENDING NOTE I, Selvin Liriano MD, have independently examined this patient and performed my own physical exam, as well as reviewed the documentation and edited where nec essary. I have discussed in detail with the resident / student the findings and plan of treatment as documented by the resident / student and edited their note. I agree with their findings and treatment plan and have edited their documentation. Jelena aSnchez MD Sep 09, 2020 13:30 SELVIN LIRIANO MD Sep 10, 2020 13:37
[2020-09-09 16:00] VITALS: BP 130/67
[2020-09-09 20:00] VITALS: BP 112/67
[2020-09-10] VITALS (8 sets, daily range): BP systolic 117–136; BP diastolic 75–89; O2SAT 92
[2020-09-10] MEDS: ENOXAPARIN 60MG/0.6ML SYRINGE (J1650 PER 10MG) SC SCH (05:54)
[2020-09-10 08:33] LABS: HEMATOCRIT 40.7 % (42.0-52.0); HEMOGLOBIN 13.1 g/dl (13.5-17.5); MEAN CORPUSCULAR HEMOGLOBIN 27.4 pg (27.0-33.0); MEAN CORPUSCULAR HGB CONC 32.2 g/dl (32.0-36.5); MEAN CORPUSCULAR VOLUME 85.1 fl (80.0-96.0); PLATELET COUNT, AUTOMATED 492 10^3/uL (150-450); RED BLOOD COUNT 4.78 10^6/uL (4.30-6.10); WHITE BLOOD COUNT 11.2 10^3/uL (4.0-10.0)
[2020-09-10] MEDS: ASCORBIC ACID 500 MG TAB PO SCH (08:54)
[2020-09-10] MEDS: ZINC SULFATE 220 MG CAP PO SCH (08:54)
[2020-09-10] MEDS: dexameTHASONE 20MG/5ML VIAL (J1100 PER 1MG) IV SCH (08:54)
[2020-09-10 09:01] LABS: ALBUMIN 2.7 GM/DL (3.2-5.2); ALT/SGPT 79 U/L (12-78); BILIRUBIN,TOTAL 0.5 MG/DL (0.2-1.0); BLOOD UREA NITROGEN 11 MG/DL (7-18); CARBON DIOXIDE LEVEL 26 MEQ/L (21-32); CHLORIDE LEVEL 103 MEQ/L (98-107); CREATININE FOR GFR 0.74 MG/DL (0.70-1.30); GLOMERULAR FILTRATION RATE > 60.0 (>60); GLUCOSE, FASTING 79 MG/DL (70-100); SODIUM LEVEL 138 MEQ/L (136-145); TOTAL PROTEIN 6.2 GM/DL (6.4-8.2)
--- NOTE | 2020-09-10 11:44 | IPNPDOC ---
Text Note Date of Service The patient was seen on 09/10/20. NOTE Covid positive on Aug 28. Symptoms started around 10 days prior to Aug 28 Subjective: Patient was examined and seen at bedside today. He reports his pain better, did not sleep at night, eating well, denies having any acute events overnight. He reports his volume and incentive spirometry has increased as well. Physical exam: General: Patient is awake, alert, oriented times three, sitting in bed, no apparent distress. Head and neck :Conjunctiva clear, pupils equal round and reactive to light and accommodation. Cardiovascular: S1, S2, normal rhythm, no murmur appreciated. Respiratory: Distant breath sounds heard in bilateral lungs, no rhonchi or wheezes. Abdomen: Soft, bowel sounds positive, no tenderness Extremities: No edema, no tenderness. Central nervous system (STONE CUTTER): Awake, alert and fully oriented. No focal deficits. Assessment: Mr. Zendejas is a 35-year-old male who presented to ED on Aug 28, with symptoms going on since 10 days prior of shortness of breath and productive cough. He initially in ED was on 15 L and at 84% saturation later was desaturating and was put on Vapotherm of 40 L and 100% FiO2, he was admitted to the hospital and was started on remdesivir finished on 09/06, and steroids[day 12] and today will decrease Lovenox 40 MG twice a day given his stable condition and d-dimer less than 3000. Acute hypoxic respiratory failure 2/2 Covid 19 infection: - Patient is improving slowly. Moving in the right direction. He is on 15 L and 30 % FiO2 on Vapotherm today. Better than yesterday. - Will try to wean him down slowly as tolerated. - On day 14 of dexamethasone. last dose remdesivir on [09/06/2020] - Encourage to use incentive spirometry as often as possible. - Given his d-dimer is low will decrease his Lovenox to 40 mg twice a day. - Will continue vitamin C and zinc Obesity: - BMI is 34.2 - Complicating care. Disposition: She is moving in the right direction, we will try to gradually wean him off of Vapotherm to nasal cannula. I anticipate discharge in early next week. VS,Fishbone, I+O VS, Fishbone, I+O Laboratory Tests 09/10/20 07:48 Vital Signs Date Time Temp Pulse Resp B/P (MAP) Pulse Ox O2 Delivery O2 Flow Rate FiO2 09/10/20 08:17 99.6 116 18 130/84 (99) 88 HVNI-Vapotherm 15.0 30 I&O- Last 24 Hours up to 6 AM 09/10/20 06:00 Intake Total 1500 ml Output Total 2475 ml Balance -975 ml GME ATTESTATION GME ATTESTATION My faculty preceptor for this patient encounter was physically present during the encounter and was fully available. All aspects of the patient interview, examination, medical decision making process, and medical care plan development were reviewed and approved by the faculty preceptor. The faculty preceptor is aware and concurs with the plan as stated in the body of this note and will attest to such by his/her cosignature. ATTENDING NOTE I, Selvin Liriano MD, have independently examined this patient and performed my own physical exam, as well as reviewed the documentation and edited where necessary. I have discussed in detail with the resident / student the findings and plan of treatment as documented by the resident / student and edited their note. I agree with their findings and treatment plan and have edited their documentation. Jelena Sanchez MD Sep 10, 2020 11:44 SELVIN LIRIANO MD Sep 10, 2020 13:38
[2020-09-10] MEDS: ENOXAPARIN 40MG/0.4ML SYRINGE (J1650 PER 10MG) SC SCH (18:45)
[2020-09-11 04:42] VITALS: BP 132/71
[2020-09-11] MEDS: ENOXAPARIN 40MG/0.4ML SYRINGE (J1650 PER 10MG) SC SCH (05:40)
[2020-09-11 08:00] VITALS: BP 141/81
[2020-09-11] MEDS: dexameTHASONE 20MG/5ML VIAL (J1100 PER 1MG) IV SCH (08:44)
[2020-09-11] MEDS: ZINC SULFATE 220 MG CAP PO SCH (08:44)
[2020-09-11] MEDS: ASCORBIC ACID 500 MG TAB PO SCH (08:45)
[2020-09-11 12:00] VITALS: BP 131/83
[2020-09-11] MEDS ORDERED: ACET1TAB55 PO (13:01)
--- NOTE | 2020-09-11 13:07 | DS.PDOC ---
Discharge Summary General Date of Admission Aug 28, 2020 at 20:41 Date of Discharge 09/11/20 Discharge Summary PROCEDURES PERFORMED DURING STAY: [None]. ADMITTING DIAGNOSES: Acute hypoxic respiratory failure 2/2 Covid 19 infection: Obesity Sepsis DISCHARGE DIAGNOSES: Acute hypoxic respiratory failure 2/2 Covid 19 infection: Obesity Sepsis COMPLICATIONS/CHIEF COMPLAINT: Covid Hypoxia. HISTORY OF PRESENT ILLNESS:Mr. Zendejas is a 35-year-old male who presented to ED on Aug 28, with symptoms going on since 10 days prior of shortness of breath a nd productive cough. He initially in ED was on 15 L and at 84% saturation later was desaturating and was put on Vapotherm of 40 L and 100% FiO2, he was admitted to the hospital and was started on remdesivir finished on 09/06, and steroids[day 12] and today will decrease Lovenox 40 MG twice a day given his stable condition and d-dimer less than 3000. HOSPITAL COURSE: During the hospital stay the following issues addressed Acute hypoxic respiratory failure 2/2 Covid 19 infection: Patient received treatment with steroids and remdesivir with positive effect Obesity: - BMI is 34.2 - Complicating care. DISCHARGE MEDICATIONS: Please see below. ALLERGIES: Please see below. PHYSICAL EXAMINATION ON DISCHARGE: VITAL SIGNS: Please see below. General: Patient is awake, alert, oriented times three, sitting in bed, no apparent distress. Head and neck :Conjunctiva clear, pupils equal round and reactive to light and accommodation. Cardiovascular: S1, S2, normal rhythm, no murmur appreciated. Respiratory: Distant breath sounds heard in bilateral lungs, no rhonchi or wheezes. Abdomen: Soft, bowel sounds positive, no tenderness Extremities: No edema, no tenderness. Central nervous system (BEAD WIRE INSULATOR): Awake, alert and fully oriented. No focal deficits. LABORATORY DATA: Please see below. IMAGING: TECHNIQUE: Portable AP view of the chest FINDINGS: Significantly increased diffuse bilateral pulmonary opacities. No effusion. No pneumothorax. Visualized mediastinum and cardiac silhouette stable. Skeletal structures intact. IMPRESSION: Significantly increased bilateral pulmonary opacities. PROGNOSIS: Good ACTIVITY: [As tolerated]. DIET: Regular DISPOSITION: Home ITEMS TO FOLLOWUP ON ON OUTPATIENT: Follow-up with PCP in 3-5 days DISCHARGE CONDITION: [Stable]. TIME SPENT ON DISCHARGE: Greater than minutes. Vital Signs/I&Os Vital Signs Date Time Temp Pulse Resp B/P (MAP) Pulse Ox O2 Delivery O2 Flow Rate FiO2 09/11/20 12:00 98.6 100 18 131/83 (99) 93 Nasal Cannula 2.0 09/10/20 12:10 30 I&O- Last 24 Hours up to 6 AM 09/11/20 05:59 Intake Total 3200 ml Output Total 1700 ml Balance 1500 ml Discharge Medications Scheduled PRN Acetaminophen (Acetaminophen) 325 Mg Tablet, 650 MG PO Q6HP PRN for PAIN / FEVER Allergies Coded Allergies: No Known Allergies (Unverified , 08/28/20) REYNALDO DOCKERY DO Sep 11, 2020 13:07
== END 2020-09-11 16:35 | disposition home health service (06) | DRG 720 ==
LOC: M ED 16:52 → M ED INP 20:41 → M 4MAIN 08-29 00:17
PROVIDERS: ADMIT Family Medicine; ATTEND Internal Medicine
DX: A41.9 Sepsis, unspecified organism (principal); J96.01 Acute respiratory failure with hypoxia; U07.1 COVID-19; E66.9 Obesity, unspecified; Z68.35 Body mass index [BMI] 35.0-35.9, adult